=== PATIENT | male | born 1985 | race African-American/Black ===

== ENCOUNTER 2023-04-04 10:39 | Emergency (ER) | payer BC ==
[~2023-04-04] VITALS: Ht 200.7 cm; Wt 114.0 kg
[2023-04-04 11:15] VITALS: BP 160/89
[2023-04-04] MEDS ORDERED: BACITRACIN ZINC OINT UDPKT TOP ONE (11:15)
[2023-04-04] MEDS ORDERED: TETANUS, DIPHTHERIA, PERTUSSIS VAC/PF 0.5ML (>10YR OLD) IM ONE (11:15)
[2023-04-04] MEDS ORDERED: IBUPROFEN 600MG TABLET PO ONE (11:15)
== END 2023-04-04 13:08 | disposition home or self-care (01) ==
LOC: ER 10:39
DX: S62.303A Unspecified fracture of third metacarpal bone, left hand, initial encounter for closed fracture (principal); V86.05XA Driver of 3- or 4- wheeled all-terrain vehicle (ATV) injured in traffic accident, initial encounter; Y93.I9 Activity, other involving external motion; Y92.89 Other specified places as the place of occurrence of the external cause; Y99.8 Other external cause status
CPT/HCPCS: 29125; 73110; 73120; 90471; 90715; 99284